=== PATIENT | female | born 1975 | race Caucasian/White ===

== ENCOUNTER 2018-12-08 14:54 | Emergency (ER) | payer BC ==
[~2018-12-08] VITALS: Ht 162.6 cm; Wt 68.9 kg
[2018-12-08 15:00] VITALS: Ht 162.6 cm; Wt 68.9 kg
[2018-12-08 15:36] LABS: PLATELET COUNT 302 x10^3mcL (130-400); RED CELL DISTRIBUTION WIDTH 12.5 % (11.5-14.5)
[2018-12-08 15:37] LABS: BASOPHIL % 0 % (0-2)
[2018-12-08 15:48] LABS: CALCIUM 8.7 mg/dL (8.5-10.1); CARBON DIOXIDE 25.8 mmol/L (21-32); CHLORIDE SERUM 102 mmol/L (98-107); CREATININE SERUM 0.6 mg/dL (0.6-1.0); GFR1 > 60 mL/min; GLUCOSE SERUM 96 mg/dL (74-106); POTASSIUM SERUM 3.2 mmol/L (3.5-5.1); SODIUM SERUM 138 mmol/L (136-145)
[2018-12-08 15:52] LABS: ALKALINE PHOSPHATASE 112 U/L (46-116); ALT/SGPT 79 U/L (14-59); AST/SGOT 125 U/L (15-37); BILIRUBIN TOTAL 0.4 mg/dL (0.20-1.00); LIPASE 74 IU/L (73-393); TOTAL PROTEIN, SERUM 6.9 g/dL (6.4-8.2)
[2018-12-08 16:02] LABS: ALBUMIN 3.3 g/dL (3.4-5.0)
[2018-12-08 18:11] VITALS: BP 112/68
== END 2018-12-08 18:11 | disposition home or self-care (01) ==
LOC: ED 14:54
PROVIDERS: Emergency Medicine
DX: K80.20 Calculus of gallbladder without cholecystitis without obstruction (principal); Z90.89 Acquired absence of other organs
CPT/HCPCS: 36415; Q0092